=== PATIENT | male | born 1965 | race Caucasian/White ===

== ENCOUNTER 2018-01-29 16:55 | Emergency (ER) | payer OTHER ==
[~2018-01-29] VITALS: Ht 182.9 cm; Wt 90.9 kg
[2018-01-29 16:57] VITALS: Ht 182.9 cm; Wt 90.9 kg
[2018-01-29] MEDS ORDERED: GLATOPA INJ (17:03)
[2018-01-29 17:38] LABS: BASOPHILS 1.1 % (0-2); EOSINOPHILS 2.1 % (0-7); HEMATOCRIT 44.5 % (42.0-54.0); HEMOGLOBIN 15.9 g/dL (13.5-17.5); IMMATURE GRANULOCYTES 0.1 % (0-5); LYMPHOCYTES 28.3 % (15-50); MCH 30.6 pg (26.0-34.0); MCHC 35.7 g/dL (31.0-37.0); MCV 85.7 fL (80.0-100.0); MEAN PLATELET VOLUME 9.2 fL (7.4-10.4); MONOCYTES 7.9 % (2-11); NEUTROPHILS 60.5 % (40-80); PLATELET COUNT 192 10x3/uL (130-400); RBC 5.19 10x6/uL (4.20-6.10); RDW 12.8 % (11.5-14.5)
[2018-01-29 17:52] LABS: ALBUMIN 3.6 g/dL (3.4-5.0); ALKALINE PHOSPHATASE 86 U/L (46-116); ALT (SGPT) 41 U/L (10-68); BILIRUBIN - TOTAL 0.43 mg/dL (0.2-1.3); CALC OSMOLALITY 269 mosm/kg (275-300); CALCIUM 8.9 mg/dL (8.5-10.1); CARBON DIOXIDE 28.5 mmol/L (21.0-32.0); CHLORIDE - SERUM 102 mmol/L (98-107); CREATININE - SERUM 0.9 mg/dL (0.6-1.3); GLUCOSE 101 mg/dL (74-106); POTASSIUM - SERUM 3.9 mmol/L (3.5-5.1); PROTEIN - SERUM 6.7 g/dL (6.4-8.2); SODIUM 136 mmol/L (136-145); UREA NITROGEN 8 mg/dL (7-18); eGFR NON AFRICAN AMERICAN > 90 mL/min (90-120)
[2018-01-29] MEDS ORDERED: ROBAXIN-750750 MG PO (18:27)
[2018-01-30 03:01] VITALS: BP 127/89
== END 2018-01-29 18:55 | disposition home or self-care (01) ==
LOC: D.ER 16:55
PROVIDERS: Family Medicine
DX: S16.1XXA Strain of muscle, fascia and tendon at neck level, initial encounter (principal); V43.52XA Car driver injured in collision with other type car in traffic accident, initial encounter; Y93.89 Activity, other specified; Y92.410 Unspecified street and highway as the place of occurrence of the external cause; R51 Headache; G35 Multiple sclerosis

== ENCOUNTER → 2020-11-26 17:07 | Outpatient (CLI) | payer OTHER ==
[2018-01-29 16:57] VITALS: BMI 27.2
[~2020-11-26 17:07] MED LIST: GLATOPA INJ; ROBAXIN-750750 MG PO
[2020-11-26 17:36] LABS: BASOPHILS 0.7 % (0-2); EOSINOPHILS 2.6 % (0-7); HEMOGLOBIN 16.2 g/dL (13.5-17.5); MCH 29.5 pg (26.0-34.0); MCHC 34.4 g/dL (31.0-37.0); MCV 85.8 fL (80.0-100.0); MEAN PLATELET VOLUME 6.9 fL (7.4-10.4); MONOCYTES 13.6 % (2-11); NEUTROPHILS 73.1 % (40-80); PLATELET COUNT 223 10x3/uL (130-400); RBC 5.48 10x6/uL (4.20-6.10); RDW 13.7 % (11.5-14.5); WBC 5.9 10x3/uL (4.8-10.8)
[2020-11-26 17:50] LABS: ALBUMIN 3.6 g/dL (3.4-5.0); ANION GAP 11.6 mmol/L (8-16); BILIRUBIN - TOTAL 0.66 mg/dL (0.2-1.3); CALCIUM 8.5 mg/dL (8.5-10.1); CARBON DIOXIDE 27.2 mmol/L (21.0-32.0); CREATININE - SERUM 1.1 mg/dL (0.6-1.3); POTASSIUM - SERUM 3.8 mmol/L (3.5-5.1); PROTEIN - SERUM 6.6 g/dL (6.4-8.2)
== END | disposition home or self-care (01) ==
LOC: D.LAB 17:07
PROVIDERS: ATTEND Psychiatry & Neurology Neurology
DX: G35 Multiple sclerosis (principal)